=== PATIENT | male | born 1950 | race Asian ===

== ENCOUNTER 2017-01-08 15:49 | Emergency (ER) | payer MEDICAID ==
[~2017-01-08] VITALS: Ht 160 cm; Wt 66.0 kg
[2017-01-08 16:38] VITALS: BP 145/89
== END 2017-01-08 20:00 | disposition left against medical advice (07) ==
LOC: ER 15:49
DX: M25.561 Pain in right knee (principal); Z53.21 Procedure and treatment not carried out due to patient leaving prior to being seen by health care provider

== ENCOUNTER 2020-02-25 10:27 | Emergency (ER) | payer MEDICAID ==
[~2020-02-25] VITALS: Ht 162.6 cm; Wt 70.0 kg
[2020-02-25 10:28] VITALS: BP 175/95
== END 2020-02-25 11:06 | disposition home or self-care (01) ==
LOC: ER 10:32
DX: M54.89 Other dorsalgia (principal)
CPT/HCPCS: 99281

== ENCOUNTER 2021-08-25 10:49 | Emergency (ER) | payer MEDICAID, OTHER ==
[~2021-08-25] VITALS: Ht 162.6 cm; Wt 72.0 kg
[~2021-08-25 10:49] MED LIST: CEPH500C2 MT
[2021-08-25 10:59] VITALS: BP 146/90
== END 2021-08-25 12:13 | disposition home or self-care (01) ==
LOC: ER 11:13
DX: S61.411D Laceration without foreign body of right hand, subsequent encounter (principal); E11.9 Type 2 diabetes mellitus without complications; I10 Essential (primary) hypertension; Z48.00 Encounter for change or removal of nonsurgical wound dressing; X58.XXXD Exposure to other specified factors, subsequent encounter
CPT/HCPCS: 99281

== ENCOUNTER 2021-09-02 10:07 | Emergency (ER) | payer MEDICAID ==
[~2021-09-02] VITALS: Ht 165.1 cm; Wt 66.0 kg
[2021-09-02 11:18] VITALS: BP 135/64
== END 2021-09-02 11:19 | disposition home or self-care (01) ==
LOC: ER 10:07
DX: S61.411D Laceration without foreign body of right hand, subsequent encounter (principal); X58.XXXD Exposure to other specified factors, subsequent encounter; E11.9 Type 2 diabetes mellitus without complications; I10 Essential (primary) hypertension
CPT/HCPCS: 99281; Z7610

== ENCOUNTER 2023-09-09 14:54 | Emergency (ER) | payer MEDICAID, OTHER ==
[~2023-09-09] VITALS: Ht 172.7 cm; Wt 79.0 kg
[2023-09-09 14:59] VITALS: O2SAT 97
[2023-09-09 15:44] LABS: CLARITY URINE CLEAR (CLEAR); COLOR URINE YELLOW (YELLOW); GLUCOSE URINE 3+ (NEGATIVE); KETONES URINE NEGATIVE (NEGATIVE); LEUKOCYTE ESTERASE URINE NEGATIVE (NEGATIVE); NITRITE URINE NEGATIVE (NEGATIVE); OCCULT BLOOD URINE NEGATIVE (NEGATIVE); PROTEIN URINE TRACE (NEGATIVE); SPECIFIC GRAVITY URINE 1.035 (1.005-1.030); UROBILINOGEN URINE 0.2 E.U./dL (0.2-1.0)
[2023-09-09 16:01] LABS: BACTERIA URINE TRACE; RBC URINE NONE SEEN /hpf (0-2); SQUAMOUS EPITHELIAL CELL URINE RARE /lpf (RARE/1+); WBC URINE 0-2 /hpf (0-2)
[2023-09-09 16:20] LABS: BASOPHILS % 0.6 % (0.0-2.0); EOSINOPHILS % 0.1 % (0.0-5.0); HEMATOCRIT. 42.8 % (42.0-52.0); HEMOGLOBIN. 14.2 g/dL (14.0-18.0); LYMPHOCYTES % 11.2 % (20.0-50.0); MEAN CORPUSCULAR HEMOGLOBIN 28.4 pg (28.0-32.0); MEAN CORPUSCULAR HGB CONC 33.1 g/dL (31.0-37.0); MEAN CORPUSCULAR VOLUME 85.7 fL (80.0-94.0); MEAN PLATELET VOLUME 8.3 fl (7.4-10.4); MONOCYTES % 8.7 % (2.0-8.0); NEUTROPHILS % 79.4 % (40.0-76.0); PLATELET 199 x1000/uL (130-400); RED CELL DISTRIBUTION WIDTH 13.8 % (11.6-14.6); WHITE BLOOD COUNT 7.6 x1000/uL (4.5-11.0)
[2023-09-09 16:35] LABS: ALANINE AMINOTRANSFERASE 87 IU/L (10-49); ASPARTATE AMINOTRANSFERASE 62 IU/L (<34); CALCIUM 9.7 mg/dL (8.7-10.4); CARBON DIOXIDE 32 mEq/L (21-32); CHLORIDE 94 mEq/L (98-107); CREATININE 1.3 mg/dL (0.6-1.3); GLUCOSE 185 mg/dL (70-105); PROTEIN TOTAL 8.2 g/dL (6.0-8.3); SODIUM 133 mEq/L (136-145); UREA NITROGEN BLOOD 16 mg/dL (9-23)
[2023-09-09] MEDS: ONDANSETRON HCL 4MG/2ML INJ IV STA (17:34)
[2023-09-09] MEDS: SODIUM CHLORIDE 0.9% 1,000 ML IV ONE (17:34)
[2023-09-09] MEDS: KETOROLAC 15MG/ML VIAL IV ONE (17:35)
[2023-09-09 17:40] LABS: TROPONIN I HIGH SENSITIVITY < 4 ng/L (3.0-53)
[2023-09-09] MEDS ORDERED: FAMO-135 PO (20:25)
[2023-09-09 21:07] VITALS: BP 144/83; PULSE 86; RESP 12; TEMP 99.1
== END 2023-09-09 21:06 | disposition home or self-care (01) ==
LOC: ER 14:54
DX: K80.20 Calculus of gallbladder without cholecystitis without obstruction (principal); R74.01 Elevation of levels of liver transaminase levels; E11.9 Type 2 diabetes mellitus without complications; I10 Essential (primary) hypertension
CPT/HCPCS: 99285; 74176; 96374; 76700; 71045; 96361; 96375; 80053; 81003; 82962; 83690; 85025; 84484; 36415; 93005; J1885; J2405; J7030